=== PATIENT | male | born 1960 | race Caucasian/White ===

== ENCOUNTER 2016-06-17 20:07 | Emergency (ER) | payer OTHER ==
[~2016-06-17] VITALS: Ht 172.7 cm; Wt 105.0 kg
[~2016-06-17 20:07] MED LIST: ANTI-DIARRHEA2 MG PO; CITRATE OF MAG296 ML PO; DESYREL100 MG PO; FISH OIL300 MG PO; FLEXERIL10 MG PO; FLOVENT 11120 INHALA IH; FUROSEMIDE40 MG PO; HYDROCODON-ACE1 EAC7 PO; K-TAB10 MEQ PO; MEDROL DOSEPAK4 MG PO; METRONIDAZOLE500 MG PO; MOBIC7.5 MG PO; MOTRIN600 MG PO; MOTRIN800 MG PO; MULTIPLE VITAM1 EACH PO; NAPROSYN500 MG PO; NIZORAL A-D120 ML TP; OMEPRAZOLE20 M2 PO; PROAIR HFA8.5 GM IH; TYLENOL REGULA325 MG PO; UNASYN3 GM IM; VENTOLIN HFA18 GM IH; ZITHROMAX Z-PA250 MG PO; ZOFRAN4 MG PO
[2016-06-17 22:39] VITALS: BP 125/91
== END 2016-06-17 22:40 | disposition home or self-care (01) ==
LOC: EME 20:07 → EXP 20:07
PROC: 3E0234Z Introduction of Serum, Toxoid and Vaccine into Muscle, Percutaneous Approach (ICD-10-PCS; principal; 2016-06-17)
DX: S60.512A Abrasion of left hand, initial encounter (principal); S60.222A Contusion of left hand, initial encounter; W01.0XXA Fall on same level from slipping, tripping and stumbling without subsequent striking against object, initial encounter; Y93.01 Activity, walking, marching and hiking; Z23 Encounter for immunization; J45.909 Unspecified asthma, uncomplicated; G89.29 Other chronic pain; I10 Essential (primary) hypertension; G80.9 Cerebral palsy, unspecified
CPT/HCPCS: 99281; 99282

== ENCOUNTER 2016-07-09 16:58 | Emergency (ER) | payer OTHER ==
[~2016-07-09] VITALS: Ht 172.7 cm; Wt 102.3 kg
[2016-07-09] MEDS ORDERED: PERCOCET 5/31 TABLET PO (18:49)
[2016-07-09] MEDS ORDERED: SKELAXIN800 MG PO (18:49)
[2016-07-09 19:42] VITALS: BP 140/91
== END 2016-07-09 19:44 | disposition home or self-care (01) ==
LOC: EME → EDBD 16:58 → EME 19:44
DX: M54.5 Low back pain (principal); G89.29 Other chronic pain
CPT/HCPCS: 99281; 99283; J1885

== ENCOUNTER 2016-07-14 09:44 | Emergency (ER) | payer OTHER ==
[~2016-07-14] VITALS: Ht 175.3 cm; Wt 106.0 kg
[~2016-07-14 09:44] MED LIST changes: +PERCOCET 5/31 TABLET PO; +SKELAXIN800 MG PO
[2016-07-14] MEDS ORDERED: LIDODERM 5% P1 PATCH TD (11:03)
[2016-07-14] MEDS ORDERED: NAPROSYN500 MG PO (11:03)
[2016-07-14] MEDS ORDERED: BACLOFEN10 MG PO (11:03)
[2016-07-14 11:18] VITALS: BP 157/90
== END 2016-07-14 11:20 | disposition home or self-care (01) ==
LOC: EME 09:44
DX: S39.012A Strain of muscle, fascia and tendon of lower back, initial encounter (principal); W07.XXXA Fall from chair, initial encounter; Y93.84 Activity, sleeping; Y92.009 Unspecified place in unspecified non-institutional (private) residence as the place of occurrence of the external cause; G89.29 Other chronic pain; M54.9 Dorsalgia, unspecified; Z79.891 Long term (current) use of opiate analgesic; G80.8 Other cerebral palsy; R53.1 Weakness
CPT/HCPCS: 99281; 99284; J1885

== ENCOUNTER 2016-10-24 20:02 | Emergency (ER) | payer OTHER ==
[~2016-10-24] VITALS: Ht 175.3 cm; Wt 103.3 kg
[~2016-10-24 20:02] MED LIST changes: +BACLOFEN10 MG PO; +LIDODERM 5% P1 PATCH TD
[2016-10-24 20:35] LABS: HEMATOCRIT 41.8 % (38.0-50.0); MCH 31.6 PG (29.0-34.0); MCHC 34.7 G/DL (30.0-36.0); MCV 91.1 FL (86-99); MEAN PLAT.VOLUME 9.8 uM^3 (9.0-12.4); PLATELET COUNT 173 K/uL (156-360); RBC DIS.WIDTH-CV 12.9 % (11.8-14.6); RBC DIS.WIDTH-SD 42.9 % (39-53); RED BLOOD COUNT 4.59 M/uL (4.00-5.50); WHITE BLOOD COUNT 4.5 K/uL (4.1-10.2)
[2016-10-24 20:46] LABS: CHLORIDE 105 mEq/L (99-109); POTASSIUM 3.7 mEq/L (3.7-5.4); SODIUM 138 mEq/L (136-147)
[2016-10-24 20:48] LABS: GLUCOSE 106 mg/dL (70-99)
[2016-10-24 20:50] LABS: ANION GAP 10 MEQ/L (2-14)
[2016-10-24 20:52] LABS: GFR ESTIMATE (CALCULATED) > 59 mL/min/
[2016-10-24 20:53] LABS: UREA NITROGEN (BUN) 11 mg/dL (9-23)
[2016-10-24 21:45] VITALS: BP 134/89
== END 2016-10-24 21:47 | disposition home or self-care (01) ==
LOC: EME → EDBD 20:02 → EME 20:02
PROVIDERS: Emergency Medicine
DX: R60.0 Localized edema (principal); M79.605 Pain in left leg; M79.89 Other specified soft tissue disorders; J45.909 Unspecified asthma, uncomplicated; I10 Essential (primary) hypertension; G80.9 Cerebral palsy, unspecified
CPT/HCPCS: 73564; 73590; 80048; 85027; 93971; 99281; 99284

== ENCOUNTER 2016-11-09 08:34 | Day surgery (SDC) | payer OTHER ==
[2016-11-12] MEDS ORDERED: NAPROSYN500 MG PO (12:41)
[2016-11-12] MEDS ORDERED: HYDROCODON-ACE1 EAC7 PO (12:41)
[2016-11-12] MEDS ORDERED: PRILOSEC20 MG PO (12:42)
== END 2016-11-09 09:42 | disposition home or self-care (01) ==
LOC: PAIN 08:34 → SDC 09:45
DX: M47.816 Spondylosis without myelopathy or radiculopathy, lumbar region (principal); M54.5 Low back pain; M51.36 Other intervertebral disc degeneration, lumbar region; M79.1 Myalgia; Z79.891 Long term (current) use of opiate analgesic; G80.9 Cerebral palsy, unspecified; I10 Essential (primary) hypertension; J45.909 Unspecified asthma, uncomplicated; K21.9 Gastro-esophageal reflux disease without esophagitis; E66.9 Obesity, unspecified; Z68.35 Body mass index [BMI] 35.0-35.9, adult; G47.33 Obstructive sleep apnea (adult) (pediatric)
CPT/HCPCS: J1030; J2250; J3010; S0020

== ENCOUNTER 2016-11-16 08:46 | Day surgery (SDC) | payer OTHER ==
[~2016-11-16] VITALS: Ht 167.6 cm; Wt 99.3 kg
[~2016-11-16 08:46] MED LIST changes: +PRILOSEC20 MG PO
== END 2016-11-16 11:05 | disposition home or self-care (01) ==
LOC: PAIN 08:46 → SDC 09:45 → PAIN 11:05
DX: M47.816 Spondylosis without myelopathy or radiculopathy, lumbar region (principal); F41.9 Anxiety disorder, unspecified; M51.36 Other intervertebral disc degeneration, lumbar region; M17.10 Unilateral primary osteoarthritis, unspecified knee; M79.1 Myalgia; K21.9 Gastro-esophageal reflux disease without esophagitis; J45.909 Unspecified asthma, uncomplicated; G80.9 Cerebral palsy, unspecified; G89.29 Other chronic pain; E66.9 Obesity, unspecified; Z68.35 Body mass index [BMI] 35.0-35.9, adult; G47.33 Obstructive sleep apnea (adult) (pediatric)
CPT/HCPCS: J1030; J3010; S0020

== ENCOUNTER 2017-02-18 13:13 | Day surgery (SDC) | payer OTHER ==
[~2017-02-18] VITALS: Ht 167.6 cm; Wt 99.3 kg
== END 2017-02-18 15:10 | disposition home or self-care (01) ==
LOC: PAIN 13:13 → SDC 14:00 → PAIN 15:10
DX: M47.816 Spondylosis without myelopathy or radiculopathy, lumbar region (principal); M54.5 Low back pain; G89.29 Other chronic pain; M51.36 Other intervertebral disc degeneration, lumbar region; M79.1 Myalgia; J45.909 Unspecified asthma, uncomplicated; I10 Essential (primary) hypertension; K21.9 Gastro-esophageal reflux disease without esophagitis
CPT/HCPCS: J1030; J2250; J3010; S0020

== ENCOUNTER 2017-02-25 10:07 | Day surgery (SDC) | payer OTHER ==
[~2017-02-25] VITALS: Ht 167.6 cm; Wt 99.3 kg
[~2017-02-25 10:07] MED LIST changes: +FISH OIL 1,0001 EAC7 PO
== END 2017-02-25 11:55 | disposition home or self-care (01) ==
LOC: PAIN 10:07 → SDC 10:30 → PAIN 11:55
PROC: 3E0T3TZ Introduction of Destructive Agent into Peripheral Nerves and Plexi, Percutaneous Approach (ICD-10-PCS; principal; 2017-02-25)
PROC: BR161ZZ Fluoroscopy of Lumbar Facet Joint(s) using Low Osmolar Contrast (ICD-10-PCS; principal; 2017-02-25)
DX: M47.816 Spondylosis without myelopathy or radiculopathy, lumbar region (principal); M54.5 Low back pain; G89.29 Other chronic pain; I47.1 Supraventricular tachycardia; I10 Essential (primary) hypertension; J45.909 Unspecified asthma, uncomplicated; Z79.891 Long term (current) use of opiate analgesic
CPT/HCPCS: J1030; J2250; J3010; S0020

== ENCOUNTER 2017-04-27 10:09 | Day surgery (SDC) | payer OTHER ==
[~2017-04-27] VITALS: Ht 167.6 cm; Wt 99.3 kg
[~2017-04-27 10:09] MED LIST changes: +ADVIL200 MG PO
== END 2017-04-27 12:05 | disposition home or self-care (01) ==
LOC: PAIN 10:09 → SDC 10:45 → PAIN 12:05
DX: M47.26 Other spondylosis with radiculopathy, lumbar region (principal); M51.16 Intervertebral disc disorders with radiculopathy, lumbar region; M79.1 Myalgia; I47.1 Supraventricular tachycardia; E66.9 Obesity, unspecified; G47.33 Obstructive sleep apnea (adult) (pediatric); J45.909 Unspecified asthma, uncomplicated; Z79.891 Long term (current) use of opiate analgesic
CPT/HCPCS: J1100; J2250; J3010

== ENCOUNTER 2017-05-25 09:57 | Day surgery (SDC) | payer OTHER ==
[~2017-05-25] VITALS: Ht 167.6 cm; Wt 99.3 kg
== END 2017-05-25 12:10 | disposition home or self-care (01) ==
LOC: PAIN 09:57
DX: M47.26 Other spondylosis with radiculopathy, lumbar region (principal); M51.16 Intervertebral disc disorders with radiculopathy, lumbar region; M79.1 Myalgia; F41.9 Anxiety disorder, unspecified; K21.9 Gastro-esophageal reflux disease without esophagitis; J45.909 Unspecified asthma, uncomplicated; G80.9 Cerebral palsy, unspecified; G47.33 Obstructive sleep apnea (adult) (pediatric); Z79.891 Long term (current) use of opiate analgesic
CPT/HCPCS: J1100; J2250; J3010

== ENCOUNTER 2017-08-12 05:57 | Emergency (ER) | payer OTHER ==
[~2017-08-12] VITALS: Ht 167.6 cm; Wt 104.0 kg
[2017-08-12] MEDS ORDERED: MOTRIN800 MG PO (07:22)
[2017-08-12 07:47] VITALS: BP 134/80
== END 2017-08-12 07:48 | disposition home or self-care (01) ==
LOC: EME → EDBD 05:57 → EME 07:48
PROC: 0JQ10ZZ Repair Face Subcutaneous Tissue and Fascia, Open Approach (ICD-10-PCS; principal; 2017-08-12)
DX: S20.219A Contusion of unspecified front wall of thorax, initial encounter (principal); S01.81XA Laceration without foreign body of other part of head, initial encounter; S40.012A Contusion of left shoulder, initial encounter; W06.XXXA Fall from bed, initial encounter; W22.8XXA Striking against or struck by other objects, initial encounter; I10 Essential (primary) hypertension; G80.9 Cerebral palsy, unspecified; M19.90 Unspecified osteoarthritis, unspecified site; F41.9 Anxiety disorder, unspecified; Z91.81 History of falling; J30.1 Allergic rhinitis due to pollen
CPT/HCPCS: 71100; 73030; 99281; 99285

== ENCOUNTER 2017-11-25 09:06 | Day surgery (SDC) | payer OTHER ==
[~2017-11-25] VITALS: Ht 167.6 cm; Wt 99.3 kg
== END 2017-11-25 11:47 | disposition home or self-care (01) ==
LOC: PAIN 09:06 → SDC 10:00 → PAIN 10:00
DX: M54.16 Radiculopathy, lumbar region (principal); M51.36 Other intervertebral disc degeneration, lumbar region; M47.816 Spondylosis without myelopathy or radiculopathy, lumbar region; M19.90 Unspecified osteoarthritis, unspecified site
CPT/HCPCS: J1100